=== PATIENT | male | born 1960 | race Caucasian/White ===

== ENCOUNTER 2020-10-14 11:32 | Emergency (ER) | payer OTHER, MEDICARE ==
[2020-10-14] MEDS ORDERED: MEDROL 4MG DOSEP4 MG PO (14:54)
[2020-10-14] MEDS ORDERED: NORCO 5-325 TA1 EACH PO (14:54)
== END 2020-10-14 15:35 | disposition home or self-care (01) ==
LOC: FER 11:32
DX: M50.10 Cervical disc disorder with radiculopathy, unspecified cervical region (principal); Z88.1 Allergy status to other antibiotic agents; Z88.5 Allergy status to narcotic agent; Z91.041 Radiographic dye allergy status
CPT/HCPCS: 72125; 93005

== ENCOUNTER 2021-03-07 14:23 | Emergency (ER) | payer MEDICARE, OTHER ==
[~2021-03-07 14:23] MED LIST: MEDROL 4MG DOSEP4 MG PO; NORCO 5-325 TA1 EACH PO
[2021-03-07 15:39] LABS: BASOPHIL 0.4 % (0-2); EOSINOPHIL 2.8 % (0-5); HCT 52.7 % (42.0-52.0); HGB 17.6 g/dl (13.2-18.0); LYMPHOCYTE 24.1 % (15-48); MCH 28.7 pg (25.0-31.0); MCHC 33.4 g/dL (32.0-36.0); MCV 85.8 fL (78.0-100.0); MONOCYTE 7.6 % (0-12); NEUTROPHIL 64.6 % (41-80); NRBC 0; PLT 202 K/uL (150-400); RBC 6.14 M/uL (4.70-6.00); RDW 13.5 % (11.5-14.0); WBC 7.9 K/uL (4.0-10.5)
[2021-03-07 16:01] LABS: ALBUMIN 3.4 g/dL (3.4-5.0); BILIRUBIN - TOTAL 0.5 mg/dL (0.2-1.0); BUN/CREAT RATIO (CALC) 9.6 RATIO; CREATININE 0.94 mg/dL (0.67-1.17); GLOBULIN (CALCULATION) 2.6 g/dL; POTASSIUM 3.9 mmol/L (3.5-5.1)
[2021-03-07] MEDS ORDERED: IBUPROFEN800 MG PO (16:26)
[2021-03-07] MEDS ORDERED: NORCO 5-325 TA1 EACH PO (16:31)
== END 2021-03-07 17:06 | disposition home or self-care (01) ==
LOC: FER 14:23
PROVIDERS: Internal Medicine
DX: S39.011A Strain of muscle, fascia and tendon of abdomen, initial encounter (principal); R91.1 Solitary pulmonary nodule; E11.9 Type 2 diabetes mellitus without complications; I10 Essential (primary) hypertension; Z90.49 Acquired absence of other specified parts of digestive tract; Z88.5 Allergy status to narcotic agent; Z88.1 Allergy status to other antibiotic agents; Z91.040 Latex allergy status; X50.0XXA Overexertion from strenuous movement or load, initial encounter
CPT/HCPCS: 36415; 80053; 84484; 85025; 93005; J1885

== ENCOUNTER 2022-01-25 09:37 | Emergency (ER) | payer MEDICARE, OTHER ==
[~2022-01-25 09:37] MED LIST changes: +IBUPROFEN800 MG PO
[2022-01-25 11:09] LABS: ALBUMIN 3.8 g/dL (3.4-5.0); BILIRUBIN - TOTAL 0.7 mg/dL (0.2-1.0); BUN/CREAT RATIO (CALC) 17.5 RATIO; CREATININE 0.8 mg/dL (0.67-1.17); GLOBULIN (CALCULATION) 2.8 g/dL; TOTAL PROTEIN 6.6 g/dL (6.4-8.2)
[2022-01-25 11:14] LABS: BASOPHIL 0.8 % (0-2); EOSINOPHIL 3.8 % (0-5); HCT 48.5 % (42.0-52.0); HGB 16.1 g/dl (13.2-18.0); LYMPHOCYTE 31.7 % (15-48); MCH 28.9 pg (25.0-31.0); MCHC 33.2 g/dL (32.0-36.0); MCV 86.9 fL (78.0-100.0); MONOCYTE 8.6 % (0-12); MPV 10.1 fL (6.0-9.5); NEUTROPHIL 53.6 % (41-80); NRBC 0; PLT 228 K/uL (150-400); RBC 5.58 M/uL (4.70-6.00); RDW 13.4 % (11.5-14.0)
[2022-01-25 11:28] LABS: BILIRUBIN NEGATIVE (NEGATIVE); BLOOD NEGATIVE Ery/uL (NEGATIVE); CLARITY CLEAR (CLEAR); COLOR YELLOW (YELLOW); GLUCOSE (U) 3+ mg/dL (NORMAL); LEUKOCYTES NEGATIVE Leu/uL (NEGATIVE); NITRITE NEGATIVE (NEGATIVE); PROTEIN NEGATIVE (NEGATIVE); SPECIFIC GRAVITY 1.015 (1.001-1.030); UROBILINOGEN 0.2 mg/dL (0.2-1.0)
[2022-01-25] MEDS ORDERED: NORCO 5-325 TA1 EACH PO (13:48)
== END 2022-01-25 14:00 | disposition home or self-care (01) ==
LOC: FER 09:37
PROVIDERS: Emergency Medicine
DX: R10.33 Periumbilical pain (principal); R61 Generalized hyperhidrosis; N28.1 Cyst of kidney, acquired; Z28.310 Unvaccinated for COVID-19; Z88.1 Allergy status to other antibiotic agents; Z88.5 Allergy status to narcotic agent; Z91.041 Radiographic dye allergy status
CPT/HCPCS: 36415; 80053; 81003; 84145; 84153; 84484; 85025; J7030

== ENCOUNTER → 2022-04-08 | Day surgery (SDC) | payer MEDICARE, OTHER ==
[~2022-04-08] VITALS: Ht 175.3 cm; Wt 89.8 kg
[~2022-04-08] MED LIST changes: +DULOXETINE HCL60 MG PO; +GABAPENTIN400 MG PO; +JARDIANCE25 MG PO; +LEVOTHYROXINE50 MCG PO; +LISINOPRIL10 MG PO; +METFORMIN HCL500 M3 PO; +OMEPRAZOLE40 MG PO; +OZEMPIC0.25 MG/0. SC; +SIMVASTATIN20 MG PO; +TIZANIDINE HCL4 MG PO
[2022-04-08 08:05] LABS: HGB 17.8 g/dl (13.2-18.0); MCH 28.7 pg (25.0-31.0); MCHC 33.6 g/dL (32.0-36.0); MCV 85.5 fL (78.0-100.0); MPV 9.8 fL (6.0-9.5); RBC 6.2 M/uL (4.70-6.00); RDW 13.6 % (11.5-14.0); WBC 8.4 K/uL (4.0-10.5)
[2022-04-08 08:16] LABS: ALBUMIN 3.7 g/dL (3.4-5.0); BILIRUBIN - TOTAL 0.7 mg/dL (0.2-1.0); BUN/CREAT RATIO (CALC) 11.1 RATIO; CREATININE 0.81 mg/dL (0.67-1.17); GLOBULIN (CALCULATION) 2.9 g/dL; POTASSIUM 3.8 mmol/L (3.5-5.1); TOTAL PROTEIN 6.6 g/dL (6.4-8.2)
== END | disposition home or self-care (01) ==
LOC: FAS 07:25
PROVIDERS: Surgery
DX: Z12.11 Encounter for screening for malignant neoplasm of colon (principal); D12.3 Benign neoplasm of transverse colon; K57.30 Diverticulosis of large intestine without perforation or abscess without bleeding; K31.9 Disease of stomach and duodenum, unspecified; K44.9 Diaphragmatic hernia without obstruction or gangrene; K21.00 Gastro-esophageal reflux disease with esophagitis, without bleeding; E78.5 Hyperlipidemia, unspecified; I10 Essential (primary) hypertension; E11.9 Type 2 diabetes mellitus without complications; E03.9 Hypothyroidism, unspecified; J45.909 Unspecified asthma, uncomplicated; Z79.84 Long term (current) use of oral hypoglycemic drugs; Z79.899 Other long term (current) drug therapy; Z88.2 Allergy status to sulfonamides
CPT/HCPCS: 36415; 80053; J1610; J2250; J7120